=== PATIENT | male | born 1965 | race Caucasian/White ===

== ENCOUNTER → 2023-08-07 06:35 | Day surgery (SDC) | payer BC, SELFPAY | LOC: GI 06:35 | PROVIDERS: ATTENDING PHYSICIAN Internal Medicine Gastroenterology | DX: Z12.11 Encounter for screening for malignant neoplasm of colon (principal); R19.5 Other fecal abnormalities; K57.30 Diverticulosis of large intestine without perforation or abscess without bleeding; D12.0 Benign neoplasm of cecum; D12.2 Benign neoplasm of ascending colon; D12.3 Benign neoplasm of transverse colon; D12.5 Benign neoplasm of sigmoid colon; D12.7 Benign neoplasm of rectosigmoid junction | CPT/HCPCS: 45385; 45381; 88305 ==

== ENCOUNTER → 2023-09-04 07:12 | Outpatient (REF) | payer BC, SELFPAY | LOC: HWRAD 07:12 | PROVIDERS: ATTENDING PHYSICIAN Internal Medicine Cardiovascular Disease | DX: I77.810 Thoracic aortic ectasia (principal) | CPT/HCPCS: 71250 ==

== ENCOUNTER → 2023-09-25 09:38 | Outpatient (REF) | payer BC, SELFPAY | LOC: PET 09:38 | PROVIDERS: ATTENDING PHYSICIAN Family Medicine | DX: R91.8 Other nonspecific abnormal finding of lung field (principal); D36.9 Benign neoplasm, unspecified site | CPT/HCPCS: 78815; A9552 ==

== ENCOUNTER → 2023-10-16 11:16 | Outpatient (REF) | payer BC, SELFPAY | LOC: HWRAD 11:16 | PROVIDERS: ATTENDING PHYSICIAN Internal Medicine Critical Care Medicine; FAMILY PHYSICIAN Family Medicine | DX: R91.8 Other nonspecific abnormal finding of lung field (principal) | CPT/HCPCS: 71250 ==

== ENCOUNTER 2023-11-09 06:10 | Day surgery (SDC) | payer BC, SELFPAY ==
[2023-11-04 06:33] VITALS: BMI 23.2
[2023-11-04 08:53] LABS: Hematocrit 43.4 % (39.0-52.0); Mean Corp Hgb Conc. 34.6 g/dL (33.0-37.0); Mean Corpuscular Hgb 30.2 pg (27.0-31.0); Mean Corpuscular Volume 87.3 fL (80.0-94.0); Mean Platelet Volume 12.6 fL (7.4-10.4); Platelet Count 178 10^3/uL (130-400); Red Blood Cell Count 4.97 10^6/uL (4.70-6.10)
[2023-11-04 09:07] LABS: INR 1.07; PT 13.9 Sec (11.4-14.6)
[2023-11-04 09:08] LABS: APTT 29.4 Sec (23.4-35.0)
[2023-11-04 09:54] LABS: Blood Urea Nitrogen 20 mg/dl (9-20); Calcium 9.2 mg/dl (8.4-10.2); Carbon Dioxide 25 mmol/L (22-30); Chloride 104 mmol/L (98-107); Estimated Creatinine Clearance 82 ml/min; Glucose 93 mg/dl (70-99); Potassium 4.7 mmol/L (3.5-5.1); Sodium 139 mmol/L (135-145); eGFR > 60.00
[2023-11-09] VITALS (9 sets, daily range): BP systolic 115–133; BP diastolic 76–87; BMI 24.6
[2023-11-09 08:49] LABS: Glucose - Point of Care 113 mg/dl (70-99)
[2023-11-09] MEDS: VENTOLIN NEBULES 2.5 MG INH (08:59)
[2023-11-09 11:16] LABS: Glucose - Point of Care 116 mg/dl (70-99)
== END 2023-11-09 12:40 | disposition home or self-care (01) ==
LOC: GI 06:10
PROVIDERS: ATTENDING PHYSICIAN Internal Medicine Critical Care Medicine; FAMILY PHYSICIAN Family Medicine
DX: D14.31 Benign neoplasm of right bronchus and lung (principal); R91.8 Other nonspecific abnormal finding of lung field
CPT/HCPCS: 31629; 31624; 31623; 31627; 31654; 88173; 88305; 36415; 71045; 76000; 80048; 82962; 85027; 85610; 85730; 88112; 88341; 88342; 94640; C1887

== ENCOUNTER → 2023-12-25 07:01 | Outpatient (REF) | payer BC, SELFPAY | LOC: RAD 07:01 | PROVIDERS: ATTENDING PHYSICIAN Family Medicine | DX: J20.9 Acute bronchitis, unspecified (principal) | CPT/HCPCS: 71046 ==

== ENCOUNTER → 2024-01-26 07:02 | Outpatient (REF) | payer BC, SELFPAY | LOC: RAD 07:02 | PROVIDERS: ATTENDING PHYSICIAN Internal Medicine Critical Care Medicine; FAMILY PHYSICIAN Family Medicine | DX: R91.8 Other nonspecific abnormal finding of lung field (principal) | CPT/HCPCS: 71250 ==

== ENCOUNTER → 2024-05-06 14:52 | Outpatient (REF) | payer BC, SELFPAY | LOC: HWRAD 14:52 | PROVIDERS: ATTENDING PHYSICIAN Internal Medicine Critical Care Medicine; FAMILY PHYSICIAN Family Medicine | DX: R91.8 Other nonspecific abnormal finding of lung field (principal) | CPT/HCPCS: 71250 ==

== ENCOUNTER → 2024-07-22 11:49 | Outpatient (REF) | payer BC, SELFPAY | LOC: HWRAD 11:49 | PROVIDERS: ATTENDING PHYSICIAN Internal Medicine Critical Care Medicine; FAMILY PHYSICIAN Family Medicine | DX: R91.8 Other nonspecific abnormal finding of lung field (principal) | CPT/HCPCS: 71250 ==

== ENCOUNTER 2025-01-27 06:24 | Day surgery (SDC) | payer BC, SELFPAY | END 2025-01-27 14:58 | disposition home or self-care (01) | LOC: GI 06:24 | PROVIDERS: ATTENDING PHYSICIAN Internal Medicine Gastroenterology | DX: Z12.11 Encounter for screening for malignant neoplasm of colon (principal); Z86.0101 Personal history of adenomatous and serrated colon polyps; K57.30 Diverticulosis of large intestine without perforation or abscess without bleeding; D12.3 Benign neoplasm of transverse colon; D12.5 Benign neoplasm of sigmoid colon | CPT/HCPCS: 45385; 45381; 88305 ==

== ENCOUNTER → 2025-03-31 13:05 | Outpatient (REF) | payer BC, SELFPAY | LOC: HWRAD 13:05 | PROVIDERS: ATTENDING PHYSICIAN Internal Medicine Critical Care Medicine; FAMILY PHYSICIAN Family Medicine | DX: R91.8 Other nonspecific abnormal finding of lung field (principal) | CPT/HCPCS: 71250 ==